=== PATIENT | female | born 1940 | race African-American/Black ===

== ENCOUNTER 2017-12-25 13:57 | Outpatient (CLI) | payer MEDICARE, OTHER ==
[~2017-12-25] VITALS: Ht 157.5 cm; Wt 71.7 kg
--- NOTE | 2017-12-25 14:59 | GI Initial Consult Note ---
History of Present Illness General Date patient seen: Dec 25, 2017 Time patient seen: 14:55 Referring physician: NONE - PCP Alexandro Gibbons MD Reason for Consultation: CBD dilation Present Illness HPI 77 year old female patient s/p ERCP for CBD dilation last week at [facility], noted as a very difficult case with no stones present. At the time, the CBD was found to be very inflamed with severe stenosis concerning for possible mass pressing against the duct. Random biopsy was taken labeled as duodenum biopsy showed no active inflammation, atypia or malignancy seen. ERCP was not completed at the time and the patients LFTs were observed throughout the week. Despite rising bilirubin, the patient was asymptomatic and requested to be discharged. She presents today for repeat ERCP vs EUS for CBD dilation. Denies any GI symptoms at this time. Has generalized jaundice. In addition, c/ o of N/V and abdominal bloating. C/o of BLE swelling, trace assessed. Denies any unintentional weight loss or changes in dietary habits. Loss of 10-15 lbs in the past month. Patient has unsteady gait and is a fall risk. See medication reconciliation list. Allergies: Coded Allergies: No Known Allergies (Unverified , 12/25/17) Patient History History Provided By: Patient, Medical Record PMH Narrative HTN CBD dilation Past Surgical History: none Family History Narrative Father >> Prostate Mother >> HTN Social History: Reports: other - coffee; Denies: smoking, alcohol use, drug use Review of Systems All Other Systems: negative except mentioned in HPI Physical Exam T 98.2 BP 119/75 P 87 95 RA WT 158.1 HT 5'2 Sp02 EP Interpretation: reviewed, normal General Appearance: well appearing, no apparent distress, alert, obese Head: normocephalic EENT: PERRL/EOMI, normal ENT inspection Neck: supple Respiratory: normal breath sounds, no respiratory distress Cardiovascular: normal rate Gastrointestinal: normal inspection, non tender, soft, normal bowel sounds, non -distended Rectal: deferred Genitourinary: no CVA tenderness Musculoskeletal: normal inspection, back normal Neurologic: normal inspection, alert, oriented x3, responsive Psychiatric: normal inspection, judgement/insight normal, memory normal Skin: normal inspection, normal color, no rash, warm/dry, palpation normal, well hydrated Lymphatic: normal inspection, no adenopathy GI: Plan Problems: (1) Dilated cbd, acquired (2) Nausea & vomiting (3) Bloating (4) HTN (hypertension) (5) Encounter for diagnostic endoscopy Plan EUS scheduled tomorrow. - NPO @ [place]. - hold all blood thinners labs to be drawn >> CBC, CMP, Mg, Phos, tumor markers Seen with Dr. Giron. The patient was seen and examined at bedside and all new and available data was reviewed in the patients chart. I agree with the above findings, impression and plan. (Patient seen earlier today. Signature stamp does not reflect patient encounter time.). - MD [facility] CRYSTAL SYRUP MAKER Dec 25, 2017 14:59
[2017-12-25 15:26] VITALS: BP 119/75
[2017-12-25] MEDS ORDERED: AMLODIPINE BESYL5 MG ORAL (15:40)
[2017-12-25] MEDS ORDERED: HYDROCHLOROTHIA25 MG ORAL (15:40)
[2017-12-26] MEDS ORDERED: ASPIR 8181 MG ORAL (10:18)
== END 2017-12-25 14:27 | disposition home or self-care (01) ==
LOC: PAN 13:57
DX: R11.2 Nausea with vomiting, unspecified (principal); R14.0 Abdominal distension (gaseous); I10 Essential (primary) hypertension; R17 Unspecified jaundice; Z82.49 Family history of ischemic heart disease and other diseases of the circulatory system; E66.9 Obesity, unspecified; Z68.28 Body mass index [BMI] 28.0-28.9, adult
CPT/HCPCS: 99201

== ENCOUNTER 2017-12-26 09:37 | Day surgery (SDC) | payer MEDICARE, OTHER ==
[~2017-12-26] VITALS: Ht 157.5 cm; Wt 71.7 kg
[2017-12-26] VITALS (8 sets, daily range): BP systolic 107–118; BP diastolic 60–77
[~2017-12-26 09:37] MED LIST: AMLODIPINE BESYL5 MG ORAL; HYDROCHLOROTHIA25 MG ORAL
[2017-12-26] MEDS ORDERED: Atropine Inj 1mg/10ml Syr IV PRN (10:15)
[2017-12-26] MEDS ORDERED: fentaNYL 100 mcg/2 mL IV PRN (10:15)
[2017-12-26] MEDS ORDERED: Midazolam 2mg/2ml Inj IVP PRN (10:15)
[2017-12-26] MEDS ORDERED: DiphenhydrAMINE 50mg/ml Inj IVP PRN (10:15)
[2017-12-26] MEDS ORDERED: ASPIR 8181 MG ORAL (10:18)
--- NOTE | 2017-12-26 10:18 | Anethesia Preoperative Eval ---
Anesthesia Pre-op PMH/ROS General Date of Evaluation: Dec 26, 2017 Time of Evaluation: 10:15 Anesthesiologist: yessi ASA Score: ASA 3 Mallampati Score Class I : Soft palate, uvula, fauces, pillars visible Class II: Soft palate, uvula, fauces visible Class III: Soft palate, base of uvula visible Class IV: Only hard plate visible Mallampati Classification: Class II Surgeon: alen Diagnosis: common bile duct stone, abdominal pain Surgical Procedure: eus Anesthesia History: none Social History: smoking - nonsmoker Family History: no anesthesia problems Allergies: Coded Allergies: No Known Allergies (Unverified , 12/26/17) Medications: see eMAR Past Medical History Cardiovascular: Reports: HTN Gastrointestinal/Genitourinary: Reports: other - common bile duct stone, s/p ercp, jaundice Neurologic/Psychiatric: Reports: other - unsteady gait HEENT: Reports: cataract (L), cataract (R) Anesthesia Pre-op Phys. Exam Physician Exam Last Vital Signs Date Time Temp Pulse Resp B/P (MAP) Pulse Ox O2 Delivery O2 Flow Rate FiO2 12/26/17 10:31 Room Air 12/26/17 10:20 97.6 74 18 107/72 (84) 99 97.6 Constitutional: NAD Neurologic: CN 2-12 intact Cardiovascular: RRR Respiratory: CTA Gastrointestinal: S/NT/ND Airway Exam Mallampati Score: Class II MO: limited Neck: supple TMD: 2fb ROM: limited Teeth: loose Dentures: lower Anesthesia Pre-op A/P Risk Assessment & Plan Assessment: asa3 Plan: mac Status Change Before Surgery: No Pre-Antibiotics Drug: Leisa Valencia MD Dec 26, 2017 10:18
[2017-12-26 10:46] LABS: BASOPHILS % (AUTO) 0.8 % (0.0-2.0); EOSINOPHILS % (AUTO) 0.2 % (0.0-3.0); HEMATOCRIT 35.5 % (37.0-47.0); HEMOGLOBIN 11.7 G/DL (12.0-16.0); LYMPHOCYTES % (AUTO) 12.5 % (20.0-45.0); MEAN CORPUSCULAR VOLUME 92 FL (80-99); MONOCYTES % (AUTO) 13.2 % (1.0-10.0); NEUTROPHILS % (AUTO) 73.4 % (45.0-75.0); PLATELET COUNT 202 K/UL (150-450); RED BLOOD COUNT 3.86 M/UL (4.20-5.40); RED CELL DISTRIBUTION WIDTH 13.4 % (11.6-14.8); WHITE BLOOD COUNT 8.5 K/UL (4.8-10.8)
[2017-12-26 10:50] LABS: INR 1.1 (0.9-1.1)
[2017-12-26 11:12] LABS: ANION GAP 16 mmol/L (5-15); BLOOD UREA NITROGEN 31 mg/dL (7-18); CALCIUM 9.4 MG/DL (8.5-10.1); CARBON DIOXIDE 29 MMOL/L (21-32); CHLORIDE 98 MMOL/L (98-107); CREATININE 1.2 MG/DL (0.55-1.30); SODIUM 142 MMOL/L (136-145)
[2017-12-26 11:23] LABS: ALANINE AMINOTRANSFERASE 274 U/L (12-78); ALBUMIN/GLOBULIN RATIO 0.7 (1.0-2.7); ALKALINE PHOSPHATASE 362 U/L (46-116); AMYLASE 23 U/L (25-115); ASPARTATE AMINO TRANSFERASE 251 U/L (15-37); BILIRUBIN,TOTAL 9.9 MG/DL (0.2-1.0); PHOSPHORUS 2.9 MG/DL (2.5-4.9)
[2017-12-26 11:25] LABS: BILIRUBIN,DIRECT 8.5 MG/DL (0.0-0.3)
--- NOTE | 2017-12-26 12:30 | Pre-Procedure Note/Attestation ---
Pre-Procedure Note/Attestation Complete Prior to Procedure Planned Procedure: not applicable Procedure Narrative: EUS Indications for Procedure Pre-Operative Diagnosis: panc mass Attestation I attest that I discussed the nature of the procedure; its benefits; risks and complications; and alternatives (and the risks and benefits of such alternatives ), prior to the procedure, with the patient (or the patient's legal herbicide service sales representative). I attest that, if there was a reasonable possibility of needing a blood transfusion, the patient (or the patient's legal herbicide service sales representative) was given the [facility] standardized written summary, pursuant to the Alexand[place] Blood Safety Act ([place] Health and Safety Code # 1645, as amended). I attest that I re-evaluated the patient just prior to the surgery and that there has been no change in the patient's H&P, except as documented below: Francisco Javier Giron MD Dec 26, 2017 12:30
--- NOTE | 2017-12-26 12:31 | Short Stay Surgery H&P ---
History of Present Illness History of Present Illness Chief Complaint see recent office note HPI Katherine Gamble is a 77 year old female who was admitted on for Common Bile Duct Stones Patient History Allergies: Coded Allergies: No Known Allergies (Unverified , 12/26/17) Medication History Scheduled Amlodipine Besylate* (Amlodipine Besylate*), 5 MG ORAL DAILY, (Reported) Aspirin* (Aspir 81*), 81 MG ORAL DAILY, (Reported) Hydrochlorothiazide* (Hydrochlorothiazide*), 25 MG ORAL DAILY, (Reported) Physical Exam Vital Signs Last Vital Signs Date Time Temp Pulse Resp B/P (MAP) Pulse Ox O2 Delivery O2 Flow Rate FiO2 12/26/17 10:31 Room Air 12/26/17 10:20 97.6 74 18 107/72 (84) 99 97.6 Labs Laboratory Tests Test 12/26/17 10:30 White Blood Count 8.5 K/UL (4.8-10.8) Red Blood Count 3.86 M/UL (4.20-5.40) L Hemoglobin 11.7 G/DL (12.0-16.0) L Hematocrit 35.5 % (37.0-47.0) L Mean Corpuscular Volume 92 FL (80-99) Mean Corpuscular Hemoglobin 30.2 PG (27.0-31.0) Mean Corpuscular Hemoglobin Concent 32.8 G/DL (32.0-36.0) Red Cell Distribution Width 13.4 % (11.6-14.8) Platelet Count 202 K/UL (150-450) Mean Platelet Volume 8.3 FL (6.5-10.1) Neutrophils (%) (Auto) 73.4 % (45.0-75.0) Lymphocytes (%) (Auto) 12.5 % (20.0-45.0) L Monocytes (%) (Auto) 13.2 % (1.0-10.0) H Eosinophils (%) (Auto) 0.2 % (0.0-3.0) Basophils (%) (Auto) 0.8 % (0.0-2.0) Prothrombin Time 11.3 SEC (9.30-11.50) Prothromb Time International Ratio 1.1 (0.9-1.1) Activated Partial Thromboplast Time 24 SEC (23-33) Sodium Level 142 MMOL/L (136-145) Potassium Level 3.0 MMOL/L (3.5-5.1) L Chloride Level 98 MMOL/L (98-107) Carbon Dioxide Level 29 MMOL/L (21-32) Anion Gap 16 mmol/L (5-15) H Blood Urea Nitrogen 31 mg/dL (7-18) H Creatinine 1.2 MG/DL (0.55-1.30) Estimat Glomerular Filtration Rate mL/min (>60) Glucose Level 111 MG/DL (74-106) H Calcium Level 9.4 MG/DL (8.5-10.1) Phosphorus Level 2.9 MG/DL (2.5-4.9) Magnesium Level 2.0 MG/DL (1.8-2.4) Total Bilirubin 9.9 MG/DL (0.2-1.0) H Direct Bilirubin 8.5 MG/DL (0.0-0.3) H Aspartate Amino Transf (AST/SGOT) 251 U/L (15-37) H Alanine Aminotransferase (ALT/SGPT) 274 U/L (12-78) H Alkaline Phosphatase 362 U/L (46-116) H Total Protein 7.1 G/DL (6.4-8.2) Albumin 3.0 G/DL (3.4-5.0) L Globulin 4.1 g/dL Albumin/Globulin Ratio 0.7 (1.0-2.7) L Amylase Level 23 U/L (25-115) L Lipase 42 U/L (73-393) L Carcinoembryonic Antigen Pending CA 19-9 Antigen Pending Plan Attestation Are the patient's medical conditions optimized for surgery? Francisco Javier Giron MD Dec 26, 2017 12:31
[2017-12-26] MEDS ORDERED: Lidocaine 1% MPF 10mg/ml 5ml ONE (12:45)
[2017-12-26] MEDS ORDERED: Propofol 200mg/20ml IV ONE (12:45)
--- NOTE | 2017-12-26 14:01 | Cardiology Report ---
APPROVED REPORT EKG Measurement Heart [id number] MD [id number] Normal sinus rhythm Left axis deviation Anterolateral infarct, age undetermined Abnormal ECG
--- NOTE | 2017-12-26 14:26 | Endoscopy Procedure Note ---
Endoscopy Procedure Note General Indication for Procedure: juandice Procedures Performed: other - EUS Operative Findings/Diagnosis: panc mass Specimen: yes Pt Tolerated Procedure Well: Yes Estimated Blood Loss: none Anesthesia Anesthesiologist: chen Anesthesia: MAC Inserted Devices Implant(s) used?: No GI Core Measures 50 yrs or older w/o bx or poly: Not Applicable 10yrs. F/U not recommended: Not Applicable Francisco Javier Giron MD Dec 26, 2017 14:26
--- NOTE | 2017-12-26 16:17 | Immediate Post-Op Evaluation ---
Immediate Post-Op Evalulation Immediate Post-Op Evalulation Procedure: eus/fna Date of Evaluation: Dec 26, 2017 Time of Evaluation: 14:22 IV Fluids: 350ml 0.9ns Blood Products: none Estimated Blood Loss: negligible Blood Pressure Systolic: 113 Blood Pressure Diastolic: 72 Pulse Rate: 71 Respiratory Rate: 18 O2 Sat by Pulse Oximetry: 99 Temperature (Fahrenheit): 98.0 Pain Score (1-10): 0 Nausea: No Vomiting: No Complications none Patient Status: awake, reacts, patent Hydration Status: adequate Drug: Leisa Valencia MD Dec 26, 2017 16:17
--- NOTE | 2017-12-26 16:18 | 48 Hour Post Anesthesia Eval ---
Post Anesthesia Evaluation Procedure: eus/fna Date of Evaluation: Dec 26, 2017 Time of Evaluation: 14:24 Blood Pressure Systolic: 115 0: 77 Pulse Rate: 71 Respiratory Rate: 18 Temperature (Fahrenheit): 98.0 O2 Sat by Pulse Oximetry: 99 Airway: patent Nausea: No Vomiting: No Pain Intensity: 0 Hydration Status: adequate Cardiopulmonary Status: stable Mental Status/LOC: patient returned to baseline Post-Anesthesia Complications: none Follow-up care needed: N/A Leisa Workman MD Dec 26, 2017 16:18
--- NOTE | 2017-12-26 18:00 | Procedure Note ---
DATE OF PROCEDURE: 12/26/2017 SURGEON: Francisco Javier Giron M.D. REFERRING PHYSICIAN: Hans Carrizales M.D. PROCEDURE: Endoscopic ultrasound with fine needle aspiration. ANESTHESIA: Per Dr. Hare. INSTRUMENT: Olympus EUS radial and linear scope. REASON FOR PROCEDURE: INDICATION: Pancreatic mass and painless jaundice. The procedure, risks, benefits, and possible consequences, including hemorrhage, aspiration, perforation and infection, and alternative treatments, were explained to the patient/legal guardian by Dr. Francisco Javier Giron and the patient/legal guardian understood and accepted these risks. DESCRIPTION OF PROCEDURE: After informed consent was obtained and the patient was adequately sedated, the EUS radial scope was advanced through the mouth into the stomach. There was about 250 mL of fluid, which was aspirated, suggestive of gastric outlet obstruction. Of note, the patient had prior history of ERCP not too long ago. There was a lot of inflammation and ulceration of the duodenum, and making passage of the scope very difficult. At this time, we could not pass the linear scope into the duodenal bulb. There was a lot of inflammation at the opening of the duodenum. We did not feel comfortable to push the scope too much to cause a possible perforation. Scanning at the GE junction showed left adrenal gland without any obvious adenoma. Celiac axis was seen without any obvious lymphadenopathy. Pancreatic parenchyma in the body and tail was examined while the scope was kept in the stomach. There was a lot of inflammation in the pancreas, especially in the pancreatic body without any significant pancreatic duct dilatation. Pancreatic duct was maximally dilated to about 3 mm. This is questionably the mass versus inflammation. At this time, we removed the radial scope and introduced a linear scope for possible FNA. First, we used a 25-gauge needle to do FNA of the body of the pancreas. Then, we did our best to pass the scope right into the opening of the duodenal bulb, and at that point, we passed a 25-gauge needle twice into the pancreatic head hoping to get some tissue from the head. At this time, the procedure was terminated. SUMMARY OF FINDINGS: 1. Incomplete and difficult endoscopic ultrasound. We could not get the scope into the duodenal bulb, nor into the second portion of duodenum. 2. Pancreatic inflammation versus tumor in the body and head. Status post FNA of the body and head. RECOMMENDATIONS: Follow FNA results. The patient most probably will need to be admitted to the hospital, maybe at [facility] for pancreatobiliary consultation for surgery and possible turn ERCP if they can. I want to thank Dr. Carrizales for this kind referral. Francisco Javier Giron M.D. DR: FREDERICK JOB#: [id number] CC: Hans Carrizales M.D.; Fax#: [phone]
== END 2017-12-26 16:20 | disposition home or self-care (01) ==
LOC: GAS 09:37
DX: C25.1 Malignant neoplasm of body of pancreas (principal); C25.0 Malignant neoplasm of head of pancreas; R17 Unspecified jaundice; I10 Essential (primary) hypertension; Z79.82 Long term (current) use of aspirin
CPT/HCPCS: 36415; 43232; 80053; 82150; 82248; 82378; 83690; 83735; 84100; 85025; 85610; 85730; 93005; J2704; 94003; 94150